=== PATIENT | male | born 1980 | race Caucasian/White ===

== ENCOUNTER 2018-01-27 23:38 | Emergency (ER) | payer OTHER ==
[~2018-01-27] VITALS: Ht 170.2 cm; Wt 72.6 kg
[~2018-01-27 23:38] MED LIST: IBUPROFEN 800800 M1 PO; IBUPROFEN 800800 MG PO; MEDROL DOSPAK21 TA1 PO; NOHOMEMEDICATIONS; ULTRAM 50MG TAB50 MG PO
[2018-01-28] MEDS ORDERED: CLEOCIN HCL150 MG PO (00:40)
[2018-01-28] MEDS ORDERED: IBUPROFEN 800800 MG PO (00:41)
[2018-01-28] MEDS ORDERED: NORCO 5-325 TA1 EACH PO (00:41)
[2018-01-28 00:55] VITALS: BP 120/78
== END 2018-01-28 00:58 | disposition home or self-care (01) ==
LOC: M.ERS 23:38
DX: L03.012 Cellulitis of left finger (principal)